=== PATIENT | male | born 1995 | race Caucasian/White ===

== ENCOUNTER 2016-12-08 16:42 | Emergency (ER) | payer OTHER ==
[2016-12-08] MEDS ORDERED: IOPAMIDOL (ISOVUE 370) 100 ML BTL IV ONE (20:01)
[2016-12-08] MEDS ORDERED: LORazepam 2 MG/ML INJ IVP ONE (20:24)
[2016-12-08 20:25] LABS: % IMMATURE GRANULYOCYTES 0.3 % (0.0-1.1); ABSOLUTE IMMATURE GRANULOCYTES 0.02 10^3/uL (0.00-0.10); ADD DIFF? NO; ADD MORPH? NO; ADD SCAN? NO; ATYPICAL LYMPHOCYTE FLAG 10 (0-99); FRAGMENT RBC FLAG 0 (0-99); HEMATOCRIT 47.9 % (40.0-51.0); HEMOGLOBIN 16.7 g/dL (13.7-17.5); LEFT SHIFT FLG 0 (0-99); LIPEMIA HEMOLYSIS FLAG 90 (0-99); MEAN CELL HEMOGLOBIN 32.1 pg (27.9-34.1); MEAN CELL HEMOGLOBIN CONCENTR. 34.9 g/dL (32.4-36.7); MEAN CELL VOLUME 92.1 fL (81.5-99.8); MEAN PLATELET VOLUME 10.2 fL (8.7-11.7); PLATELET CLUMPS FLAG 0 (0-99); PLATELET COUNT 333 10^3/uL (150-400); RED CELL DISTRIBUTION WIDTH 12.5 % (11.5-15.2)
[2016-12-08 20:29] LABS: COLOR PALE YELLOW; LEUKOCYTE ESTERASE,URINE NEGATIVE (NEGATIVE); NITRITE,URINE NEGATIVE (NEGATIVE)
[2016-12-08 20:39] LABS: ANION GAP 13 mEq/L (8-16); CALCIUM 9.3 mg/dL (8.5-10.4); CARBON DIOXIDE 24 mEq/l (22-31); CHLORIDE 104 mEq/L (97-110); CREATININE 0.7 mg/dL (0.7-1.3); GLOMERULAR FILTRATION RATE > 60; GLUCOSE 86 mg/dL (70-100); SODIUM 141 mEq/L (134-144)
[2016-12-08 21:16] VITALS: RESP 16; TEMP 97.5; O2SAT 94
--- NOTE | 2016-12-08 21:26 | EDPHY ---
H & P Stated Complaint: Head pressure, left arm pain Time Seen by Provider: 12/08/16 19:21 HPI/ROS: CHIEF COMPLAINT: Head pressure, arm pain HISTORY OF PRESENT ILLNESS: 21-year-old male presents emergency department reporting after he drink a glass of wine last night he developed pressure in the back of his head that feels like "gravity pulling my brain through his skull like if i were on a roller coaster going down a steep drop". Patient also complains of left arm pain over the past 1-2 weeks. He is right-hand- dominant. Patient reports he is a student at 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 He reports he has been able to tight jeans pain. His pain runs from his medial elbow down to his pinky finger, worse with movement. Patient also reports a tingling in bilateral arms. Patient denies drug use. He denies suicidal ideations, homicidal ideations, auditory and visual hallucinations. Patient reports lots of stress at school recently. He reports he feels very tense in his back and shoulders. Patient denies confusion, blurred vision, chest pain or shortness of breath. He denies recent cough or cold. REVIEW OF SYSTEMS: A comprehensive 10 point review of systems is otherwise negative aside from elements mentioned in the history of present illness. Source: Patient Exam Limitations: No limitations - Personal History Current Tetanus Diphtheria and Acellular Pertussis (TDAP): Yes - Medical/Surgical History Hx Asthma: No Hx Chronic Respiratory Disease: No Hx Diabetes: No Hx Cardiac Disease: No Hx Renal Disease: No Hx Cirrhosis: No Hx Alcoholism: No Hx HIV/AIDS: No Hx Splenectomy or Spleen Trauma: No Other PMH: PMH- SINUS INFXNS, DEPRESSION - Social History Smoking Status: Never smoked - Physical Exam Exam: Physical Exam Gen: Alert and Oriented, NAD HEENT: PERRL, moist mucous membranes, bilateral TMs normal NECK: no meningismus, bilateral cervical paraspinal tenderness to palpation CV: regular rate and regular rhythm PULM: CTAB, no wheezes ABDOMEN: soft, non tender to palpation, BS present BACK: No CVA tenderness NEURO: Neurologically grossly intact, normal gait, normal cerebellar exam, 2/4 deep tendon reflexes x4 extremities EXTREMITIES: Tenderness to palpation to medial epicondyle of left elbow, pain with resisted wrist flexion. 2+ radial pulses, full range of motion of left wrist, left elbow and left shoulder SKIN: no rash or break in skin on exposed skin PSYCH: Flat affect, does not make eye contact Constitutional: Initial Vital Signs Temperature (C) 36.7 C 12/08/16 16:50 Heart Rate 101 H 12/08/16 16:50 Respiratory Rate 18 12/08/16 16:50 Blood Pressure 154/91 H 12/08/16 16:50 O2 Sat (%) 97 12/08/16 16:50 O2 Delivery Mode Room Air Allergies/Adverse Reactions: No Known Allergies Allergy (Verified 12/08/16 16:52) Home Medications: Medication Instructions Recorded Amphet Asp and D/Amphet [Adderall 10 mg PO 12/08/16 10 MG (*)] Escitalopram Oxalate [Lexapro] 10 mg PO 12/08/16 Methocarbamol [Robaxin-750] 750 - 1,500 mg PO QID PRN #20 12/08/16 tablet buPROPion [Wellbutrin] 100 mg PO 12/08/16 Medical Decision Making - Diagnostics Imaging: CT angio neck with IV contrast Findings: There is excellent arterial opacification. The anatomy of the aortic arch is normal. Assessment of the carotids and vertebrals demonstrates normal flow with no stenosis or dissection identified. No areas of abnormal enhancement are seen and no vascular malformations are noted. Impression: Negative CT angiography of the neck with no arterial occlusive disease identified CT angio brain with IV contrast Findings: The [place] and its branches are normal. No evidence of aneurysm of vascular malformation. No occlusions are found. Impression: Normal. Negative for dissection or vascular occlusion. ED Course/Re-evaluation: IV established, CBC, chemistry panel obtained, CT brain and neck angiogram ordered due to pressure-like sensation in back of head, neck pain and arm pain. 830pm-patient reports feeling much better after 1 [address] brain and neck angiogram normal. Patient will be discharged with a diagnosis of a tension headache, paracervical muscle spasms and a medial epicondylitis on the left. He agrees to follow up with his primary care doctor. I have recommended ice, ibuprofen and he has been given a prescription for Robaxin. He is to return to the emergency department for any new symptoms, questions or concerns. Differential Diagnosis: Diagnosis considered but not limited to CVA, cerebral artery dissection, headache, muscle spasms, anxiety, cervical fracture, epicondylitis - Data Points Laboratory Results: Laboratory Results 12/08/16 20:10 12/08/16 20:10 12/08/16 20:10 WBC 7.32 10^3/uL (3.80-9.50) RBC 5.20 10^6/uL (4.40-6.38) Hgb 16.7 g/dL (13.7-17.5) Hct 47.9 % (40.0-51.0) MCV 92.1 fL (81.5-99.8) MCH 32.1 pg (27.9-34.1) MCHC 34.9 g/dL (32.4-36.7) RDW 12.5 % (11.5-15.2) Plt Count 333 10^3/uL (150-400) MPV 10.2 fL (8.7-11.7) Neut % (Auto) 48.2 % (39.3-74.2) Lymph % (Auto) 35.5 % (15.0-45.0) [place] % (Auto) 8.3 % (4.5-13.0) Eos % (Auto) 6.7 % (0.6-7.6) Baso % (Auto) 1.0 % (0.3-1.7) Nucleat RBC Rel Count 0.0 % (0.0-0.2) Absolute Neuts (auto) 3.53 10^3/uL (1.70-6.50) Absolute Lymphs (auto) 2.60 10^3/uL (1.00-3.00) Absolute Monos (auto) 0.61 10^3/uL (0.30-0.80) Absolute Eos (auto) 0.49 H 10^3/uL (0.03-0.40) Absolute Basos (auto) 0.07 10^3/uL (0.02-0.10) Absolute Nucleated RBC 0.00 10^3/uL (0-0.01) Immature Gran % 0.3 % (0.0-1.1) Immature Gran # 0.02 10^3/uL (0.00-0.10) Sodium 141 mEq/L (134-144) Potassium 4.0 mEq/L (3.5-5.2) Chloride 104 mEq/L (97-110) Carbon Dioxide 24 mEq/l (22-31) Anion Gap 13 mEq/L (8-16) BUN 9 mg/dL (7-23) Creatinine 0.7 mg/dL (0.7-1.3) Estimated GFR > 60 Glucose 86 mg/dL (70-100) Calcium 9.3 mg/dL (8.5-10.4) TSH 2.530 uIU/mL (0.465-4.680) Urine Color PALE YELLOW Urine Appearance CLEAR Urine pH 6.0 (5.0-7.5) Ur Specific [place] 1.006 (1.002-1.030) Urine Protein NEGATIVE (NEGATIVE) Urine Ketones NEGATIVE (NEGATIVE) Urine Blood NEGATIVE (NEGATIVE) Urine Nitrate NEGATIVE (NEGATIVE) Urine Bilirubin NEGATIVE (NEGATIVE) Urine Urobilinogen NEGATIVE EU (0.2-1.0) Ur Leukocyte Esterase NEGATIVE (NEGATIVE) Ur Culture Indicated? NOT INDICATED (NI) Urine Glucose NEGATIVE (NEGATIVE) Medications Given: Discontinued Medications Lorazepam (Ativan Injection) 1 mg IVP EDNOW ONE Stop: 12/08/16 20:25 Last Admin: 12/08/16 20:33 Dose: 1 mg Departure - Departure Disposition: Home, Routine, Self-Care Clinical Impression: Muscle spasms of neck Headache Qualifiers: Headache type: tension-type Headache chronicity pattern: acute headache Intractability: not intractable Qualifier Code: (G44.209) Tension-type headache , unspecified, not intractable Medial epicondylitis Qualifiers: Laterality: left Qualifier Code: (M77.02) Medial epicondylitis, left elbow Condition: Good Instructions: Tension Headache (ED), Muscle Spasm (ED), Tennis Elbow (ED) Additional Instructions: Take 650 mg of Tylenol every 8 hours as needed for headache, take muscle relaxant as needed, ice to your neck and left elbow. Follow up with your primary care doctor in the next 3-5 days for re-evaluation. Return to the emergency department for worsening symptoms, other questions or concerns. Referrals: Ismael Wright MD [Medical Doctor] - As per Instructions Prescriptions: Methocarbamol [Robaxin-750] 750 - 1,500 mg PO QID PRN #20 tablet PRN Reason: Spasms
--- NOTE | 2016-12-08 21:43 | CT ---
CT Angiography Neck With Contrast Reason for examination: Neck pain and numbness and tingling in the arms. Evaluate for vascular occlu jarrett. Technique: Spiral acquisition was performed from the level of the thoracic inlet to the skull base du ring rapid intravenous administration of 75 mL of Isovue-370. This contrast volume was utilized for e valuation of the neck and head. Images were obtained at 0.6 mm thickness and reviewed on the workstat ion at multiple window and level settings. Sagittal and coronal reformations are performed. Also, a t hree-dimensional reformation is performed by the radiologist on the workstation. Dose reduction tech niques were utilized. Findings: There is excellent arterial opacification. The anatomy of the aortic arch is normal. Assess ment of the carotids and vertebrals demonstrates normal flow with no stenosis or dissection identifie d. No areas of abnormal enhancement are seen and no vascular malformations are noted. Impression: Negative CT angiography of the neck with no arterial occlusive disease identified. CT Angiography of the Head Clinical Indications: Neck pain and numbness and tingling in the arms; evaluate for occlusion or diss ection. Technique: During automated power injection of 75 mL of Isovue-300, thinly collimated spiral (volume tric) multidetector helical CT was performed through the head. This contrast dose was employed for ev aluation of the neck and head. Independent three-dimensional computer workstation was used for additi onal manipulations of images by the radiologist. Dose reduction techniques were utilized. Findings: The [place] and its branches are normal. No evidence of aneurysm of vascular malf ormation. No occlusions are found. Impression: Normal. Negative for dissection or vascular occlusion. Note: All stenoses are calculated using NASCET Criteria. A preliminary report was called to Mago Mccarthy NP at 2140 hours in the Emergency Department.
[2016-12-08 22:04] VITALS: BP 131/84; PULSE 95
== END 2016-12-08 22:12 | disposition home or self-care (01) ==
DX: M62.838 Other muscle spasm (principal); G44.209 Tension-type headache, unspecified, not intractable; M77.02 Medial epicondylitis, left elbow
CPT/HCPCS: 96374; Q9967